=== PATIENT | female | born 1980 | race Caucasian/White ===

== ENCOUNTER 2023-02-12 22:13 | Emergency (ER) | payer OTHER ==
[2023-02-12] MEDS ORDERED: Lidocaine 1% 5 ML VIAL ONE (22:43)
[2023-02-12] MEDS ORDERED: Bacitracin Oint 1 GM U/D Packet TOP ONE (23:02)
== END 2023-02-12 23:30 | disposition home or self-care (01) ==
LOC: LL.ED 22:13
DX: S61.211A Laceration without foreign body of left index finger without damage to nail, initial encounter (principal); F17.210 Nicotine dependence, cigarettes, uncomplicated; W31.2XXA Contact with powered woodworking and forming machines, initial encounter; Y92.89 Other specified places as the place of occurrence of the external cause; Y99.0 Civilian activity done for income or pay
CPT/HCPCS: 12001; 73140-F1; 99283

== ENCOUNTER 2025-01-02 17:50 | Emergency (ER) | payer MEDICAID, OTHER | END 2025-01-02 18:45 | disposition home or self-care (01) | LOC: EDSEX 17:50 → LL.ED 17:50 | DX: S99.921A Unspecified injury of right foot, initial encounter (principal); W20.8XXA Other cause of strike by thrown, projected or falling object, initial encounter | CPT/HCPCS: 73630-RT; 99283 ==